=== PATIENT | female | born 1935 | race Two or more races ===

== ENCOUNTER 2016-06-29 12:54 | Inpatient (IN) | payer OTHER ==
[~2016-06-29] VITALS: Ht 152.4 cm; Wt 57.0 kg
[2016-06-29] MEDS ORDERED: CEFTRIAXONE 1 GM/50 ML (PMX) 50 ML IVPB STA (16:32)
[2016-06-29] MEDS ORDERED: AZITHROMYCIN 500MG/NS (PMX) 250 ML IV STA (16:32)
[2016-06-29] MEDS ORDERED: morphine 4 MG/ML VIAL IV STA (16:37)
[2016-06-29] MEDS ORDERED: ONDANSETRON 4 MG INJ IV STA (16:37)
[2016-06-29] MEDS ORDERED: IPRATROPIUM (NEB) 0.5 MG/2.5 ML AMP INH ONE (17:00)
[2016-06-29] MEDS ORDERED: METHYLPREDNISOLONE 125 MG INJ IV ONE (17:00)
[2016-06-29] MEDS ORDERED: ALBUTEROL 0.5% (NEB) 2.5 MG/0.5 ML AMP INH ONE (17:00)
--- NOTE | 2016-06-29 17:12 | RADRPT ---
PROCEDURE: XR right tibia / fibula. CLINICAL INDICATION: Pain TECHNIQUE: AP and lateral views are available for review. COMPARISON: None available FINDINGS: There is mild to moderate osteoarthrosis involving the medial tibial femoral compartment, lateral ti bial femoral compartment and patellofemoral compartment. This is associated with joint space narrowi ng, subchondral sclerosis and osteophytosis. There is otherwise normal mineralization, architecture and alignment. No fractures are identified. No osseous lesions are identified. The soft tissues are unremarkable. IMPRESSION: Mild to moderate osteoarthrosis involving the medial tibial femoral compartment, lateral tibial femo ral compartment and patellofemoral compartment. Otherwise unremarkable examination RPTAT: HGDB .Earl Edgar MD, MD Date Time Electronically viewed and signed by .Earl Edgar MD, on 06/29/2016 17:11 .B/
--- NOTE | 2016-06-29 17:18 | RADRPT ---
PROCEDURE: XR Chest. CLINICAL INDICATION: Shortness of breath TECHNIQUE: Chest AP portable COMPARISON: No comparison available. FINDINGS: The mediastinal structures are unremarkable. There is calcification of the thoracic aorta (consiste nt with atherosclerosis). There is mild cardiomegaly. The pulmonary vascularity is normal. There is mild interstitial disease. No consolidation is identified. The pleural spaces are unremarkable. There are senescent changes of the axial skeleton. IMPRESSION: Calcification of the thoracic aorta (consistent with atherosclerosis) Mild cardiomegaly Mild bilateral interstitial disease No active intrathoracic disease. RPTAT: HGDB .Earl Edgar MD, Date Time Electronically viewed and signed by .Earl Edgar MD, on 06/29/2016 17:18 .B/
[2016-06-29 17:24] LABS: BASOPHILS % 0.2 % (0.0-2.0); EOSINOPHILS # 0.1 10^3/ul (0.0-0.5); EOSINOPHILS % 0.7 % (0.0-7.0); HEMATOCRIT 37.2 % (37.0-47.0); HEMOGLOBIN 12.9 g/dl (12.0-16.0); LYMPHOCYTES % 6.8 % (15.0-51.0); MEAN CORPUSCULAR HEMOGLOBIN 32.4 pg (29.0-33.0); MEAN CORPUSCULAR HGB CONC 34.6 g/dl (32.0-37.0); MEAN CORPUSCULAR VOLUME 93.7 fl (82.0-101.0); MEAN PLATELET VOLUME 7.6 fl (7.4-10.4); MONOCYTE # 1.6 10^3/ul (0.3-0.9); MONOCYTES % 10.7 % (0.0-11.0); NEUTROPHIL # 11.9 10^3/ul (1.6-7.5); NEUTROPHILS % 81.6 % (39.0-77.0); PLATELET COUNT 270 10^3/UL (140-440); RED BLOOD COUNT 3.98 10^6/ul (4.20-5.40); RED CELL DISTRIBUTION WIDTH 13.3 % (11.5-14.5); UNCORRECTED WBC 14.6 10^3/ul (4.8-10.8); WHITE BLOOD COUNT 14.6 10^3/ul (4.8-10.8)
[2016-06-29 17:25] LABS: CONDITION 1
--- NOTE | 2016-06-29 17:27 | RADRPT ---
PROCEDURE: US DVT. CLINICAL INDICATION: Right lower extremity pain and swelling. TECHNIQUE: Multiple longitudinal and transverse images of the right lower extremity veins were obt ained with lepe scale and color Doppler imaging. 2D grayscale measurements with compression, color Doppler flow, and augmentation was performed. The calf veins were interrogated as well. COMPARISON: No prior studies are available for comparison. FINDINGS: The right common femoral, superficial femoral and popliteal veins are normally compressible througho ut. Color flow demonstrates normal filling of the vessel. Normal waveforms are visualized and ther e is normal response to augmentation. The calf veins are visualized and are equally unremarkable. IMPRESSION: 1. No evidence of a deep vein thrombosis involving the right lower extremity. RPTAT: JJ .Lolly Hernández MD, Date Time Electronically viewed and signed by .Lolly Hernández MD, MD on 06/29/2016 17:27 .N/
[2016-06-29 17:39] LABS: POTASSIUM 3.8 mmol/L (3.5-5.1)
[2016-06-29] MEDS ORDERED: VALS80TA2 PO (17:40)
[2016-06-29] MEDS ORDERED: CHOL100062 PO (17:40)
[2016-06-29] MEDS ORDERED: AMLO5TAB4 PO (17:40)
[2016-06-29 17:41] LABS: CREATININE 1.07 mg/dl (0.44-1.00)
[2016-06-29] MEDS ORDERED: FLOV110 INHALATION (17:41)
[2016-06-29] MEDS ORDERED: ALBU90AE INHALATION (17:41)
[2016-06-29 17:42] LABS: CALCIUM 9.8 mg/dl (8.4-10.2)
[2016-06-29] MEDS ORDERED: CHLO4TAB PO (17:47)
--- NOTE | 2016-06-29 20:16 | ERA ---
ER Documentation Chief Complaint Date/Time DATE: 06/29/16 TIME: 20:13 Chief Complaint SOB AND COUGH FOR A FEW DAYS WITH LO O2 SAT, R KNEE NON TRAUMA PAIN. HPI Patient is an 81-year-old female with diabetes and COPD who presents for a COPD exacerbation. The patient was seen by Dr. Leonardo for COPD exacerbation with a oxygen saturation of less than 90%. The patient has right knee pain and swelling as well. The patient is short of breath with cough and phlegm. She has had no treatment as of yet. ROS All systems reviewed and are negative except as per history of present illness. Medications Home Meds Reported Medications Chlorpheniramine Maleate* (Chlor-Trimeton*) 4 Mg Tablet, 4 MG PO DAILY, TAB NOT TO EXCEED 24 MG /24 HRS 06/29/16 Fluticasone Propionate* (Flovent* HFA 110) 12 Gm Inha, 1 PUFF INHALATION BID, # 1 INHALER 06/29/16 Albuterol Sulfate (Proair Respiclick) 90 Mcg Aer.pow.ba, 2 PUFFS INHALATION Q4, BOTTLE 06/29/16 Cholecalciferol* (Vitamin D3*) 1,000 Unit Tablet, 1000 UNIT PO DAILY, TAB 06/29/16 Valsartan* (Diovan*) 80 Mg Tablet, 80 MG PO DAILY, TAB 06/29/16 Amlodipine Besylate* (Norvasc*) 5 Mg Tablet, 5 MG PO QHS, TAB 06/29/16 Allergies Allergies: Coded Allergies: No Known Allergy (Unverified , 06/29/16) PMhx/Soc History of Surgery: Yes (KNEE, SHOULDER, CATARRACT, ABD) Hx Respiratory Disorders: Yes (COPD) Hx Cardiac Disorders: Yes (HTN) Hx Miscellaneous Medical Probl: Yes (ARTHRITIS) Hx Alcohol Use: No Hx Substance Use: No Hx Tobacco Use: Yes Smoking Status: Former smoker FmHx Family History: diabetes Physical Exam Vitals Vital Signs Date Time Temp Pulse Resp B/P Pulse Ox O2 Delivery O2 Flow Rate FiO2 06/29/16 19:36 98.8 91 18 100/51 91 Nasal Cannula 4.0 06/29/16 17:33 2.0 06/29/16 17:33 67 20 96 Nasal Cannula 2.0 06/29/16 17:17 Nasal Cannula 2 06/29/16 13:09 99.5 72 24 111/62 90 Physical Exam Const: Pursed lip breathing Head: Atraumatic Eyes: Normal Conjunctiva ENT: Normal External Ears, Nose and Mouth. Neck: Full range of motion..~ No meningismus. Resp: Expiratory wheezing with pursed lip breathing and tachypnea Cardio: Regular rate and rhythm, no murmurs Abd: Soft, non tender, non distended. Normal bowel sounds Skin: No petechiae or rashes Back: No midline or flank tenderness Ext: No cyanosis, or edema Neur: Awake and alert Psych: Normal Mood and Affect Result Diagram: 06/29/16 1640 06/29/16 1640 Results 24 hrs Laboratory Tests Test 06/29/16 16:40 06/29/16 19:00 Anion Gap 17 Basophils # 0.010^3/ul Basophils % 0.2% Blood Urea Nitrogen 17mg/dl Calcium Level 9.8mg/dl Carbon Dioxide Level 27mmol/L Chloride Level 100mmol/L Creatinine 1.07mg/dl Eosinophils # 0.110^3/ul Eosinophils % 0.7% Glucose Level 140mg/dl Hematocrit 37.2% Hemoglobin 12.9g/dl Lactic Acid Level 1.4mmol/L 0.9mmol/L Lymphocytes # 1.010^3/ul Lymphocytes % 6.8% Mean Corpuscular Hemoglobin 32.4pg Mean Corpuscular Hemoglobin Concent 34.6g/dl Mean Corpuscular Volume 93.7fl Mean Platelet Volume 7.6fl Monocytes # 1.610^3/ul Monocytes % 10.7% Neutrophils # 11.910^3/ul Neutrophils % 81.6% Nucleated Red Blood Cells # 0.010^3/ul Nucleated Red Blood Cells % 0.0/100WBC Platelet Count 93802^3/UL Potassium Level 3.8mmol/L Red Blood Count 3.9810^6/ul Red Cell Distribution Width 13.3% Sodium Level 140mmol/L White Blood Count 14.610^3/ul Current Medications Medications (Trade) Dose Ordered Sig/Ejrica Route PRN Reason Start Time Stop Time Status Last Admin Dose Admin Methylprednisolone Sodium Succinate (Solu-Medrol) 125 mg ONCE ONCE IV 06/29/16 17:00 06/29/16 17:01 DC 06/29/16 17:18 Albuterol (Proventil 0.5% (Neb)) 5 mg ONCE ONCE INH 06/29/16 17:00 06/29/16 17:01 DC 06/29/16 17:33 Ipratropium [place] 0.5 mg 0.5 mg ONCE ONCE INH 06/29/16 17:00 06/29/16 17:01 DC 06/29/16 17:33 Azithromycin 250 ml @ 250 mls/hr ONCE STAT IV 06/29/16 16:32 06/29/16 17:31 DC 06/29/16 19:18 Ceftriaxone Sodium (Rocephin) 50 ml @ 100 mls/hr ONCE STAT IVPB 06/29/16 16:32 06/29/16 17:01 DC 06/29/16 17:18 Morphine Sulfate (morphine) 4 mg ONCE STAT IV 06/29/16 16:37 06/29/16 16:38 DC 06/29/16 17:18 Ondansetron HCl (Zofran Inj) 4 mg ONCE STAT IV 06/29/16 16:37 06/29/16 16:38 DC 06/29/16 17:18 Ondansetron HCl (Zofran Inj) 4 mg BRIDGE ORDER PRN IV NAUSEA AND/OR VOMITING 06/29/16 20:30 06/30/16 20:29 Acetaminophen (Tylenol Tab) 650 mg ER BRIDGE PRN PO MILD PAIN/FEVER 06/29/16 20:30 06/30/16 20:29 Procedures/MDM EKG read by me: Rate/Rhythm: Regular rate and rhythm at a normal rate Intervals: Normal Impression: No evidence of ischemia or arrhythmia Chest x-ray shows bilateral interstitial disease per radiology. Right lower extrema ultrasound negative per radiology. X-ray negative for fracture or dislocation. Patient is an 81-year-old female with COPD who presents with an acute COPD exacerbation. The patient was given albuterol, Atrovent, Solu-Medrol, and ceftriaxone as well as Zithromax. The patient will be admitted to the care of Dr. Martinez as she has regal insurance. The patient will be admitted to a medical surgical bed. At this point I doubt pneumothorax or pulmonary embolism. Ultrasound and x-ray of the right lower extremity was done and is negative for DVT or fracture. Critical Care: Time: 35 minutes excluding all billable procedures. Treatments/Evaluations: Close monitoring and treatment of unstable vital signs, cardiorespiratory, and neurologic status, while maintaining tight balance of fluid, respiratory, and cardiac interventions. Departure Diagnosis: Primary Impression: COPD exacerbation Additional Impressions: Shortness of breath Hypoxia Condition: SONNY Schroeder MD Jun 29, 2016 20:16
[2016-06-29] MEDS ORDERED: ONDANSETRON 4 MG INJ IV PRN ×2 (20:30→23:00)
[2016-06-29] MEDS ORDERED: ACETAMINOPHEN 325 MG TAB PO PRN (20:30)
[2016-06-29 20:46] LABS: AADO2 Arterial 116.9 mmHg (7.0-24.0); Arterial Base Excess -3.2 mmol/L (-3.0-3); Arterial COHb 0 % (0.0-3.0); Arterial Fraction of Oxyhgb 92.4 % (93.0-99.0); Arterial HCO3 22.4 mmol/L (22.0-26.0); Arterial MetHb 0.2 % (0.0-1.5); Arterial Total Hemglobin 12.9 g/dl (12.0-18.0); MODE NASAL CANNULA
[2016-06-29 21:13] VITALS: TEMP 98.7
[2016-06-29 21:40] VITALS: BP 118/56; RESP 16
[2016-06-29] MEDS ORDERED: ALBUTEROL 0.083% (NEB) 2.5 MG/3 ML AMP HHN PRN (23:00)
[2016-06-29] MEDS ORDERED: morphine 2 MG INJ IV PRN (23:00)
[2016-06-29] MEDS ORDERED: FUROSEMIDE 40 MG INJ IV ONE (23:00)
--- NOTE | 2016-06-29 23:03 | QN ---
Documentation Comment H&P dict a/p 1. pulm: possible copd, patient does have around a 25 pack yesr hx of smoking, however consider also pulm fibrosis based on xray and exam, check ct chest 2. cards: ?chf as source of sob and xray findings, check echo, one dose of lasix 3. R knee effusion, suspecet related to OA, no overlying erythema, but patient will not range the joint, ortho eval for possible arthrocentesis, possible steroid injection, xrays show no fractures but tricompartmental OA 4. proph: BRIANA Shi MD Jun 29, 2016 23:03
[2016-06-29 23:33] VITALS: BP 90/54
--- NOTE | 2016-06-29 23:44 | HP ---
DATE OF ADMISSION: 06/29/2016 CHIEF COMPLAINT: Shortness of breath. HISTORY OF PRESENT ILLNESS: Ms. Doyle presents to the emergency room at [facility] with s hortness of breath. This has been particularly bad over the last 1-2 days, but is associated with s ome coughing, which has been going on approximately 1 week; however, patient denies any fevers or ch ills. Does state there have been some sneezing and some runny nose. Denies sick contacts. She has never been hospitalized with shortness of breath before; however, she does acknowledge that there i s an approximately [id number]-[id number] history of smoking, which she quit approximately 1 year ago. PAST MEDICAL HISTORY: Significant for hypertension and respiratory difficulty, which led to her usi ng inhalers. MEDICATIONS: On outpatient include: 1. Vitamin D 1000 units daily. 2. Flovent 1 puff b.i.d. 3. Diovan 80 mg daily. 4. Norvasc 5 mg daily. 5. Albuterol. 6. Chlor-Trimeton. ALLERGIES: NO KNOWN DRUG ALLERGIES. SOCIAL HISTORY: Patient lives at home in [place] with her son. She occasionally uses a cane for a mbulation. She is usually independent of activities of daily living. Denies current tobacco, alcoh ol, or illicit drug use. FAMILY HISTORY: Noncontributory. REVIEW OF SYSTEMS: Five systems are reviewed and found to be revealing only for 2-pillow orthopnea. PHYSICAL EXAMINATION: VITAL SIGNS: Blood pressure is 118/56, pulse rate 79, respirations 16, temperature is 98.4. GENERAL: Pleasant elderly woman in no acute distress, alert and oriented x3. Some pursed lip breat mila. HEENT: Normocephalic, atraumatic without evident scleral icterus, perioral cyanosis. Mucous membra oxana are moist. NECK: Soft and supple without masses. No evidence of jugular venous distention or carotid bruits. HEART: Regular rate and rhythm, S1-S2, no added sounds. ABDOMEN: Soft, nontender, nondistended without palpable hepatosplenomegaly. EXTREMITIES: Without clubbing, cyanosis, or edema. CHEST: Shows some occasional crackles in the lower lung zones. I do not appreciate any wheezes. U pper zones are generally clear and rhythm. ABDOMEN: Soft, nontender, nondistended without palpable hepatosplenomegaly. EXTREMITIES: Without clubbing, cyanosis, or edema. There is a right knee effusion appreciated, and patient is very reluctant to allow either active or passive movement at this joint. No other joint involvement is appreciated. SKIN: Without rashes. NEUROLOGIC: Grossly intact. LABORATORY STUDIES: Reveal hemoglobin of 12.9 g/dL, white count of 14,600, platelets of 270,000. S odium 140, potassium 3.8, chloride 100, bicarbonate 27, BUN 17, creatinine 1.07, glucose 148. BNP i s 1130. Arterial blood gas reveals a pH of 7.343, PCO2 of 42.2, PO2 of 69.1. Chest x-ray shows dif fuse lower lung interstitial infiltrate, possibly consistent with congestive heart failure. X-ray o f the right main does not reveal any fractures, but does show tricompartmental osteoarthritis. ASSESSMENT AND PLAN: 1. Pulmonary: Patient with shortness of breath, reported to have wheezing by the emergency room ph ysician, though I do not appreciate this. At this time, I appreciate crackles. I am not certain th is could be related to chronic obstructive pulmonary disease, and certainly she does have modest smo armando history. Will treat with prednisone, as well as nebulizers; however, consider also pulmonary f ibrosis and/or pulmonary hypertension as a potential etiology for this, and we will obtain high reso lution CT scan of the chest, as well as echocardiogram for further evaluation. 2. Cardiac: Patient with shortness of breath and chest x-ray, which is suggestive, if not definiti ve, for congestive heart failure. Obtain echocardiogram. Will give 1 dose of Lasix at this time. 3. Orthopedic: Patient with right knee pain, limited range of motion, and effusion. Will obtain o rthopedic evaluation for a suspected joint tap to evaluate for potential crystals or sepsis, though my leading hypothesis is this is simply related to osteoarthritis at this time. Possibly, patient will benefit from intraarticular cortisone steroid injection. Will defer this to orthopedic consult ant. 4. Prophylaxis: With Lovenox. Dictated By: BRIANA CHOE MD RER/NTS Conf#: [id number] DID#: [id number]
[2016-06-30] MEDS: ALBUTEROL/IPRATROPIUM (NEB) 3 ML AMP HHN SCH ×4 (02:00→20:03)
[2016-06-30 07:24] VITALS: BP 94/51; RESP 18
[2016-06-30] MEDS: CHOLECALCIFEROL 1,000 UNIT TAB PO SCH (08:52)
[2016-06-30] MEDS: predniSONE 20 MG TAB PO SCH (08:52)
[2016-06-30] MEDS: ENOXAPARIN 40 MG/0.4 ML SYG SC SCH (08:52)
[2016-06-30] MEDS ORDERED: VALSARTAN 80 MG TAB PO SCH (09:00)
--- NOTE | 2016-06-30 14:52 | PN ---
Date/Time of Note Date/Time of Note DATE: 06/30/16 TIME: 14:40 Assessment/Plan VTE Prophylaxis VTE Prophylaxis Intervention: LMWH Lines/Catheters IV [facility]from [facility] Saline Lock Urinary Cath still in place: No Assessment/Plan Assessment/Plan 81 yo female with: 1. Hypoxemia, per family patient has been somewhat dyspneic with exertion, her ambulation is limited by her right knee pain. Based on her outpatient meds she may have been diagnosed with chronic lung disease as she is on Flovent and Albuterol MDI prn at home, also unclear if she uses them... CT High res results pending, for now on Prednisone, nebs and starting Levaquin. Will add Advair at least 2D echo results pending 2. ?Congestive heart failure may some diastolic dysfunction, EF 65% , no peripheral edema, BNP a little elevated for her age group Follow up CT results Lasix if needed and BP tolerates 3. Right knee pain, limited range of motion, and small to moderate effusion on exam: XR with mild to moderate OA Joint effusion likely related to OA. I have discussed it with Dr Juarez, for now patient already on Prednisone for ? chronic lung disease with acute exacerbation Dr Juarez will be available Sunday if patient is still in house and /or additional concerns otherwise patient can follow up with him as outpatient. 4. Hypertension: with hypotension since admit, Holding Diovan and Norvasc for now Prophylaxis: DVT ppx with Lovenox and GI ppx with Protonix. Disposition: Awaiting CT chest reading and ortho eval Subjective 24 Hr Interval Summary Free Text/Dictation Patient still remains hypoxic and per family her cough is productive of green sputum. Requiring up to 6L NC, CXR with no infiltrates CT chest high res done and result pending Doppler LE negative Exam/Review of Systems Vital Signs Vitals Vital Signs Date Time Temp Pulse Resp B/P Pulse Ox O2 Delivery O2 Flow Rate FiO2 06/30/16 12:53 62 18 89 Nasal Cannula 3.0 06/30/16 07:24 97.9 94/51 Intake and Output 06/29/16 06/29/16 06/30/16 15:00 23:00 07:00 Intake Total 360 ml Balance 360 ml Exam Constitutional: alert, oriented, well developed Respiratory: diminished breath sounds (bases mildly diminished ), normal air movement, other (no wheezes ) Cardiovascular: nl pulses, regular rate and rhythm Gastrointestinal: non-tender, soft Musculoskeletal: range of motion (decreased right knee ) Extremities: normal pulses, other (no edema, clubbing od cyanosis ) Neurological: DIE MAKER BENCH STAMPING II-XII intact, nl mental status, nl speech, other (limited exam with right knee pain and decreased ROM ) Results Result Diagram: 06/29/16 1640 06/29/16 1640 Results 24 hrs Laboratory Tests Test 06/29/16 16:40 06/29/16 19:00 06/29/16 19:50 06/29/16 21:15 Anion Gap 17 H Basophils # 0.0 Basophils % 0.2 Blood Urea Nitrogen 17 Calcium Level 9.8 Carbon Dioxide Level 27 Chloride Level 100 Creatinine 1.07 H Eosinophils # 0.1 Eosinophils % 0.7 Glucose Level 140 Hematocrit 37.2 Hemoglobin 12.9 Lactic Acid Level 1.4 0.9 1.0 Lymphocytes # 1.0 Lymphocytes % 6.8 L Mean Corpuscular Hemoglobin 32.4 Mean Corpuscular Hemoglobin Concent 34.6 Mean Corpuscular Volume 93.7 Mean Platelet Volume 7.6 Monocytes # 1.6 H Monocytes % 10.7 Neutrophils # 11.9 H Neutrophils % 81.6 H Nucleated Red Blood Cells # 0.0 Nucleated Red Blood Cells % 0.0 Platelet Count 270 Potassium Level 3.8 Red Blood Count 3.98 L Red Cell Distribution Width 13.3 Sodium Level 140 White Blood Count 14.6 H B-Type Natriuretic Peptide 1130 H Arterial Blood HCO3 22.4 Arterial Blood Base Excess -3.2 L Arterial Blood Oxygen Saturation 92.6 L Dg Test N/A Arterial Blood Gas Puncture Site Right Brachial Arterial Blood Carboxyhemoglobin 0 Arterial Blood Date Drawn 06/29/2016 8:35:06 PM Arterial Blood Methemoglobin 0.2 Arterial Blood pCO2 (Temp correct) 42.2 Arterial Blood pH (Temp corrected) 7.343 L Arterial Blood pO2 (Temp corrected) 69.1 L Blood Gas A-a O2 Differential 116.9 H Blood Gas Actual Respiration Rate 26 Blood Gas Critical Value Read Back Renata AWAN Blood Gas Modality NASAL CANNULA Blood Gas Notified Time 06/29/2016 8:46:46 PM Blood Gas Notified Whom BL Blood Gas Specimen Source Blood arterial Blood Gas Temperature 37.0 FiO2 33.0 Oxyhemoglobin Percent 92.4 L Total Hemoglobin 12.9 Medications Medications Current Medications Prednisone (Prednisone) 60 mg DAILY PO Last administered on 06/30/16 08:52; Admin Dose 60 MG; Start 06/30/16 at 09:00 Enoxaparin Sodium (Lovenox) 40 mg DAILY SC Last administered on 06/30/16 08:52 ; Admin Dose 40 MG; Start 06/30/16 at 09:00 Cholecalciferol (Vitamin D) 1,000 unit DAILY PO Last administered on 06/30/16 08:52; Admin Dose 1,000 UNIT; Start 06/30/16 at 09:00 Valsartan (Diovan) 80 mg DAILY PO ; Start 06/30/16 at 09:00 Acetaminophen (Tylenol Tab) 650 mg Q4H PRN PO PAIN AND OR ELEVATED TEMP; Start 06/29/16 at 23:00 Ondansetron HCl (Zofran Inj) 4 mg Q4H PRN IV NAUSEA AND/OR VOMITING; Start at 23:00 Morphine Sulfate (morphine) 2 mg Q2H PRN IV PAIN; Start 06/29/16 at 23:00 Procedures Procedures Echocardiogram Report Patient Name: OLMAN CLARKE Gender: Female Date: 1935 Study Date: 30-Jun-2016 [employer] Reader: Bear Castillo RDCS Location: [id number] Ref. Physician: BRIANA CHOE Quality: Technically Difficult Study Procedures: Transthoracic echocardiogram with complete 2D, M-Mode, and doppler examination. Indications: Congestive Heart Failure. Pulmonary Hypertension. 2D/M Mode Doppler Measurement Value Normal Ranges Measurement Value Normal Ranges LVIDd 2D 4.9 3.5 - 5.6 cm AV Mean Armando 1.3 m/sec LVIDs 2D 2.5 2.1 - 4.1 cm AV Mean PG 8.0 mmHg LVPWd 2D 1.1 0.6 - 1.1 cm AV Peak Armando 2.1 m/sec IVSd 2D 1.1 0.6 - 1.1 cm AV Peak PG 17.5 mmHg AoR Diam 2D 3.1 2.0 - 3.7 cm AV VTI 42.8 cm EDV 2D 112.3 cm3 LVOT Mean Armando 0.9 m/sec ESV 2D 15.1 cm3 LVOT Mean PG 4.0 mmHg LA Dimen 2D 3.6 2.3 - 4.0 cm LVOT Peak Armando 1.6 m/sec LVOT Peak PG 10.0 mmHg LVOT VTI 30.8 cm MV E Peak Armando 0.7 m/sec MV A Peak Armando 1.0 m/sec MV E/A 0.7 MV Decel Time 173 msec MV Decel [place] 4 MV E/A 0.7 TR Peak Armando 3.3 m/sec TR Peak PG 43.0 mmHg RVSP 58.0 mmHg Findings Left Ventricle: Normal left ventricular systolic function. Normal left ventricular cavity size. Mild concentric left ventricular hypertrophy. Ejection fraction is visually estimated at 65 %. Tissue Doppler/Mitral Doppler indices are consistent with impaired relaxation (Stage I diastolic dysfunction). Right Ventricle: Normal right ventricular systolic function. Mild enlargement of right ventricle. Mild right ventricular hypokinesis. Left Atrium: The left atrium is normal in size. Right Atrium: There is mild enlargement of right atrium. Mitral Valve: Normal appearance of the mitral valve. Mild mitral annular calcification. Trace mitral regurgitation. Aortic Valve: Aortic valve Max velocity 2.09 m/sec. Max PG 17.50 mmHg. Mean PG 8.00 mmHg. Aortic sclerosis without stenosis. Aortic cusps appear mildly calcified. Trace aortic valve regurgitation. Tricuspid Valve: Normal appearance of the tricuspid valve. Estimated peak PA systolic pressure 58 mmHg. There is mild tricuspid regurgitation. Pericardium: Normal pericardium with no significant pericardial effusion. Aorta: Normal aortic root. IVC: Dilated IVC without respiratory collapse consistent with elevated right atrial pressure. Conclusions 1. Normal left ventricular systolic function. Normal left ventricular cavity size. Mild concentric left ventricular hypertrophy. Ejection fraction is visually estimated at 65 %. Tissue Doppler/Mitral Doppler indices are consistent with impaired relaxation (Stage I diastolic dysfunction). 2. The left atrium is normal in size. 3. Normal appearance of the mitral valve. Mild mitral annular calcification. Trace mitral regurgitation. 4. Aortic valve Max velocity 2.09 m/sec. Max PG 17.50 mmHg. Mean PG 8.00 mmHg. Aortic sclerosis without stenosis. Aortic cusps appear mildly calcified. Trace aortic valve regurgitation. 5. Normal appearance of the tricuspid valve. Estimated peak PA systolic pressure 58 mmHg. There is mild tricuspid regurgitation. 6. Normal pericardium with no significant pericardial effusion. Electronically Signed By: Sebastian Zimmerman 30-Jun-2016 15:32:53 -0800 BRYAN PATEL Jun 30, 2016 14:51
[2016-06-30 14:55] VITALS: BP 96/52; PULSE 76; RESP 16
[2016-06-30] MEDS: LEVOFLOXACIN 750 MG TABLET PO SCH (15:32)
--- NOTE | 2016-06-30 15:34 | RADRPT ---
Echocardiogram Report Patient Name: OLMAN CLARKE Gender: Female Date: 1935 Study Date: 30-Jun-2016 Chef'S Assistant: Bear Castillo [facility] Location: 2239 Ref. Physician: BRIANA CHOE Quality: Technically Difficult Study Procedures: Transthoracic echocardiogram with complete 2D, M-Mode, and doppler examination. Indications: Congestive Heart Failure. Pulmonary Hypertension. 2D/M Mode Doppler Measurement Value Normal Ranges Measurement Value Normal Ranges LVIDd 2D 4.9 3.5 - 5.6 cm AV Mean Armando 1.3 m/sec LVIDs 2D 2.5 2.1 - 4.1 cm AV Mean PG 8.0 mmHg LVPWd 2D 1.1 0.6 - 1.1 cm AV Peak Armando 2.1 m/sec IVSd 2D 1.1 0.6 - 1.1 cm AV Peak PG 17.5 mmHg AoR Diam 2D 3.1 2.0 - 3.7 cm AV VTI 42.8 cm EDV 2D 112.3 cm3 LVOT Mean Armando 0.9 m/sec ESV 2D 15.1 cm3 LVOT Mean PG 4.0 mmHg LA Dimen 2D 3.6 2.3 - 4.0 cm LVOT Peak Armando 1.6 m/sec LVOT Peak PG 10.0 mmHg LVOT VTI 30.8 cm MV E Peak Armando 0.7 m/sec MV A Peak Armando 1.0 m/sec MV E/A 0.7 MV Decel Time 173 msec MV Decel Brown 4 MV E/A 0.7 TR Peak Armando 3.3 m/sec TR Peak PG 43.0 mmHg RVSP 58.0 mmHg Findings Left Ventricle: Normal left ventricular systolic function. Normal left ventricular cavity size. Mild concentric left ventricular hypertrophy. Ejection fraction is visually estimated at 65 %. Tissue Doppler/Mitral Doppler indices are consistent with impaired relaxation (Stage I diastolic dysfunction). Right Ventricle: Normal right ventricular systolic function. Mild enlargement of right ventricle. Mild right ventricular hypokinesis. Left Atrium: The left atrium is normal in size. Right Atrium: There is mild enlargement of right atrium. Mitral Valve: Normal appearance of the mitral valve. Mild mitral annular calcification. Trace mitral regurgitation. Aortic Valve: Aortic valve Max velocity 2.09 m/sec. Max PG 17.50 mmHg. Mean PG 8.00 mmHg. Aortic sclerosis without stenosis. Aortic cusps appear mildly calcified. Trace aortic valve regurgitation. Tricuspid Valve: Normal appearance of the tricuspid valve. Estimated peak PA systolic pressure 58 mmHg. There is mild tricuspid regurgitation. Pericardium: Normal pericardium with no significant pericardial effusion. Aorta: Normal aortic root. IVC: Dilated IVC without respiratory collapse consistent with elevated right atrial pressure. Conclusions 1.Normal left ventricular systolic function. Normal left ventricular cavity size. Mild concentric left ventricular hypertrophy. Ejection fraction is visually estimated at 65 %. Tissue Doppler/Mitral Doppler indices are consistent with impaired relaxation (Stage I diastolic dysfunction). 2.The left atrium is normal in size. 3.Normal appearance of the mitral valve. Mild mitral annular calcification. Trace mitral regurgitation. 4.Aortic valve Max velocity 2.09 m/sec. Max PG 17.50 mmHg. Mean PG 8.00 mmHg. Aortic sclerosis without stenosis. Aortic cusps appear mildly calcified. Trace aortic valve regurgitation. 5.Normal appearance of the tricuspid valve. Estimated peak PA systolic pressure 58 mmHg. There is mild tricuspid regurgitation. 6.Normal pericardium with no significant pericardial effusion. Electronically Signed By: Sebastian Zimmerman 30-Jun-2016 15:32:53 -0800 Patient Name: OLMAN CLARKE Study Date: 30-Jun-2016 [id number]
[2016-06-30 19:42] VITALS: BP 106/54; RESP 20
[2016-06-30 20:00] VITALS: BP 106/54; PULSE 72
--- NOTE | 2016-06-30 20:01 | RADRPT ---
PROCEDURE: CT Chest without contrast (high resolution). CLINICAL INDICATION: Productive cough. Evaluate for pulmonary fibrosis. TECHNIQUE: High-resolution CT scan of the chest was performed without the administration of intrav enous contrast. Coronal and sagittal reformatted images were obtained from the axial source images. Patient was examined during both deep inspiration and full expiration. Images were reviewed on a h igh resolution PACS workstation. CTDIvol (mGy): 37.89; Total Exam DLP (mGy-cm): 326.81. COMPARISON: Chest x-ray 06/29/2016. FINDINGS: Limited imaging of the lower neck is unremarkable. The heart is enlarged. There is no pericardial effusion. There is no mediastinal, hilar or axillar y lymphadenopathy. The thoracic aorta is normal in caliber with atherosclerotic calcification. 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 The main pulmonary artery is prominent in size. Mild coronary artery calcification is present. Mild emphysematous changes are seen within the upper lungs. Extensive bilateral subpleural intersti tial thickening is present with scattered few clusters of subpleural cystic change / honeycombing. There is an increased AP diameter of the chest suggesting hyperinflation. Trace left pleural fluid is present. Mild ground-glass opacification of the background pulmonary parenchyma is observed martin singh this is accentuated by motion artifact. Limited imaging of the upper abdomen demonstrates multiple small simple cyst of the left kidney. Degenerative changes of the thoracic spine are present. Chest wall soft tissues are unremarkable. IMPRESSION: Mild hyperinflation with mild emphysematous changes of the lung apices. In addition, there is exten sive diffuse subpleural interstitial thickening with scattered few clusters of subpleural cystic rafiq nge / honeycombing indicating the presence of interstitial fibrosis. No evidence of mass or lymphadenopathy of the chest. Cardiomegaly and atherosclerosis with trace left pleural effusion. RPTAT: HLST .Emily Dunn MD, Date Time Electronically viewed and signed by .Emily Dunn MD, on 06/30/2016 20:00 .T/
[2016-06-30] MEDS: SALMETEROL/FLUTICASONE 250/50 INHA INH SCH (23:08)
[2016-07-01] MEDS: ALBUTEROL/IPRATROPIUM (NEB) 3 ML AMP HHN SCH ×4 (01:14→20:54)
[2016-07-01] MEDS: PANTOPRAZOLE (EC) 40 MG TAB PO SCH (05:34)
[2016-07-01 05:47] LABS: BASOPHILS % 0.1 % (0.0-2.0); CONDITION 1; HEMATOCRIT 33.6 % (37.0-47.0); HEMOGLOBIN 11.8 g/dl (12.0-16.0); LYMPHOCYTES # 0.5 10^3/ul (0.8-2.9); LYMPHOCYTES % 3.2 % (15.0-51.0); MEAN CORPUSCULAR HEMOGLOBIN 32.5 pg (29.0-33.0); MEAN CORPUSCULAR HGB CONC 34.9 g/dl (32.0-37.0); MEAN CORPUSCULAR VOLUME 93.1 fl (82.0-101.0); MEAN PLATELET VOLUME 7.9 fl (7.4-10.4); MONOCYTE # 1.1 10^3/ul (0.3-0.9); MONOCYTES % 6.9 % (0.0-11.0); NEUTROPHIL # 14.9 10^3/ul (1.6-7.5); NEUTROPHILS % 89.8 % (39.0-77.0); PLATELET COUNT 320 10^3/UL (140-440); RED BLOOD COUNT 3.62 10^6/ul (4.20-5.40); RED CELL DISTRIBUTION WIDTH 13.2 % (11.5-14.5); UNCORRECTED WBC 16.5 10^3/ul (4.8-10.8); WHITE BLOOD COUNT 16.5 10^3/ul (4.8-10.8)
[2016-07-01 05:55] LABS: MAGNESIUM 1.9 mg/dl (1.7-2.5); PHOSPHORUS 4.3 mg/dl (2.5-4.9)
[2016-07-01 06:29] LABS: POTASSIUM 4.2 mmol/L (3.5-5.1)
[2016-07-01 06:32] LABS: CREATININE 1.63 mg/dl (0.44-1.00)
[2016-07-01 06:33] LABS: CALCIUM 9.2 mg/dl (8.4-10.2)
[2016-07-01 07:38] VITALS: BP 100/63; RESP 22
[2016-07-01] MEDS: CHOLECALCIFEROL 1,000 UNIT TAB PO SCH (08:31)
[2016-07-01] MEDS: SALMETEROL/FLUTICASONE 250/50 INHA INH SCH ×2 (08:32→20:34)
[2016-07-01] MEDS: predniSONE 20 MG TAB PO SCH (08:32)
[2016-07-01] MEDS: ENOXAPARIN 40 MG/0.4 ML SYG SC SCH (08:33)
[2016-07-01 09:06] VITALS: RESP 20
[2016-07-01] MEDS: ACETAMINOPHEN 325 MG TAB PO PRN (13:09)
[2016-07-01 13:50] VITALS: BP 103/53; PULSE 80; RESP 20
--- NOTE | 2016-07-01 13:50 | PN ---
Date/Time of Note Date/Time of Note DATE: 07/01/16 TIME: 13:46 Assessment/Plan VTE Prophylaxis VTE Prophylaxis Intervention: LMWH Lines/Catheters IV Catheter Type (from Nrs): Saline Lock Central line still needed: No Urinary Cath still in place: No Assessment/Plan Assessment/Plan 81 yo female with: 1. COPD/ILD: improving; still hypoxic, but will maintain oxygen saturation at 92%. Per family patient has been somewhat dyspneic with exertion, her ambulation is limited by her right knee pain. Based on her outpatient meds she may have been diagnosed with chronic lung disease as she is on Flovent and Albuterol MDI prn at home, also unclear if she uses them. CT High res results reveal ILD in the bases. 2. Congestive heart failure may some diastolic dysfunction, EF 65%: minimal effusion on CT. No need for diuretics for now. 3. Right knee pain, limited range of motion, and small to moderate effusion on exam: improving, probably with steroids. 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 I have discussed it with Dr Juarez, for now patient already on Prednisone for ? chronic lung disease with acute exacerbation Dr Juarez will be available Sunday afternoon if patient is still in house and /or additional concerns otherwise patient can follow up with him as outpatient. 4. Hypertension: with hypotension since admit, Holding Diovan and Norvasc for now Prophylaxis: DVT ppx with Lovenox and GI ppx with Protonix. Disposition: Home when she is stable. Subjective 24 Hr Interval Summary Free Text/Dictation Still coughing, but improved slightly. C/o of headache. Not eating too much. Exam/Review of Systems Vital Signs Vitals Vital Signs Date Time Temp Pulse Resp B/P Pulse Ox O2 Delivery O2 Flow Rate FiO2 07/01/16 09:06 20 93 5.0 07/01/16 08:10 72 Nasal Cannula 07/01/16 07:38 98.1 100/63 Intake and Output 06/30/16 06/30/16 07/01/16 15:00 23:00 07:00 Intake Total 600 ml 200 ml Balance 600 ml 200 ml Exam Constitutional: alert, oriented Psych: no complaints, other (headache, throbbing) Head: normocephalic Eyes: nl conjunctiva ENMT: nl external ears & nose Neck: supple Respiratory: diminished breath sounds Cardiovascular: regular rate and rhythm Gastrointestinal: soft Extremities: other (right kneww swelling) Results Result Diagram: 07/01/16 0445 07/01/16 0435 Results 24 hrs Laboratory Tests Test 07/01/16 04:35 07/01/16 04:45 Anion Gap 16 Blood Urea Nitrogen 41 #H Calcium Level 9.2 Carbon Dioxide Level 23 Chloride Level 102 Creatinine 1.63 H Glucose Level 139 Magnesium Level 1.9 Phosphorus Level 4.3 Potassium Level 4.2 Sodium Level 137 Basophils # 0.0 Basophils % 0.1 Eosinophils # 0.0 Eosinophils % 0.0 Hematocrit 33.6 L Hemoglobin 11.8 L Lymphocytes # 0.5 L Lymphocytes % 3.2 L Mean Corpuscular Hemoglobin 32.5 Mean Corpuscular Hemoglobin Concent 34.9 Mean Corpuscular Volume 93.1 Mean Platelet Volume 7.9 Monocytes # 1.1 H Monocytes % 6.9 Neutrophils # 14.9 H Neutrophils % 89.8 H Nucleated Red Blood Cells # 0.0 Nucleated Red Blood Cells % 0.0 Platelet Count 320 Red Blood Count 3.62 L Red Cell Distribution Width 13.2 White Blood Count 16.5 H Medications Medications Current Medications Prednisone (Prednisone) 60 mg DAILY PO Last administered on 07/01/16 08:32; Admin Dose 60 MG; Start 06/30/16 at 09:00 Enoxaparin Sodium (Lovenox) 40 mg DAILY SC Last administered on 07/01/16 08:33 ; Admin Dose 40 MG; Start 06/30/16 at 09:00 Cholecalciferol (Vitamin D) 1,000 unit DAILY PO Last administered on 07/01/16 08:31; Admin Dose 1,000 UNIT; Start 06/30/16 at 09:00 Acetaminophen (Tylenol Tab) 650 mg Q4H PRN PO PAIN AND OR ELEVATED TEMP Last administered on 07/01/16 13:09; Admin Dose 650 MG; Start 06/29/16 at 23:00 Ondansetron HCl (Zofran Inj) 4 mg Q4H PRN IV NAUSEA AND/OR VOMITING; Start at 23:00 Morphine Sulfate (morphine) 2 mg Q2H PRN IV PAIN; Start 06/29/16 at 23:00 Levofloxacin (Levaquin) 750 mg Q48H PO Last administered on 06/30/16 15:32; Admin Dose 750 MG; Start 06/30/16 at 15:30; Stop 07/05/16 at 15:29 Salmeterol Xinafoate/ Fluticasone (Advair 250/50 Diskus) 1 inh BID INH Last administered on 07/01/16 08:32; Admin Dose 1 INH; Start 06/30/16 at 21:00 Pantoprazole (Protonix Tab) 40 mg DAILY@06 PO Last administered on 07/01/16 05 :34; Admin Dose 40 MG; Start 07/01/16 at 06:00 DREAD WATKINS MD Jul 01, 2016 13:50
[2016-07-01] MEDS: ACETYLCYSTEINE 20% 4 ML VIAL NEB SCH ×2 (14:01→20:55)
[2016-07-01] MEDS: SOD CHLORIDE 0.9% 1,000 ML IV SCH (14:09)
[2016-07-01 20:15] VITALS: BP 145/77; RESP 20
[2016-07-01 22:00] VITALS: BP 102/71; PULSE 80; RESP 18
[2016-07-02] MEDS: ACETYLCYSTEINE 20% 4 ML VIAL NEB SCH ×4 (01:42→20:22)
[2016-07-02] MEDS: ALBUTEROL/IPRATROPIUM (NEB) 3 ML AMP HHN SCH ×4 (01:42→20:22)
[2016-07-02] MEDS: PANTOPRAZOLE (EC) 40 MG TAB PO SCH (05:22)
[2016-07-02 05:31] LABS: POTASSIUM 4.4 mmol/L (3.5-5.1)
[2016-07-02 05:33] LABS: CREATININE 1.37 mg/dl (0.44-1.00)
[2016-07-02 05:34] LABS: CALCIUM 9.4 mg/dl (8.4-10.2); CHOL/HDL RATIO 3.9 RATIO
[2016-07-02 05:36] LABS: BASOPHILS % 0.2 % (0.0-2.0); HEMATOCRIT 34.2 % (37.0-47.0); LYMPHOCYTES # 0.7 10^3/ul (0.8-2.9); LYMPHOCYTES % 5.4 % (15.0-51.0); MEAN CORPUSCULAR HEMOGLOBIN 32.5 pg (29.0-33.0); MEAN CORPUSCULAR HGB CONC 35.2 g/dl (32.0-37.0); MEAN CORPUSCULAR VOLUME 92.6 fl (82.0-101.0); MEAN PLATELET VOLUME 7.7 fl (7.4-10.4); MONOCYTE # 1.1 10^3/ul (0.3-0.9); MONOCYTES % 8.4 % (0.0-11.0); NEUTROPHIL # 10.9 10^3/ul (1.6-7.5); PLATELET COUNT 333 10^3/UL (140-440); RED CELL DISTRIBUTION WIDTH 13.3 % (11.5-14.5); UNCORRECTED WBC 12.7 10^3/ul (4.8-10.8); WHITE BLOOD COUNT 12.7 10^3/ul (4.8-10.8)
[2016-07-02 06:35] LABS: CONDITION 1
[2016-07-02] MEDS: SOD CHLORIDE 0.9% 1,000 ML IV SCH ×2 (06:50→23:19)
[2016-07-02 08:04] VITALS: BP 113/54; RESP 20
[2016-07-02] MEDS: predniSONE 20 MG TAB PO SCH (08:33)
[2016-07-02] MEDS: CHOLECALCIFEROL 1,000 UNIT TAB PO SCH (08:33)
[2016-07-02] MEDS: SALMETEROL/FLUTICASONE 250/50 INHA INH SCH ×2 (08:33→20:27)
[2016-07-02] MEDS: ENOXAPARIN 40 MG/0.4 ML SYG SC SCH (08:35)
[2016-07-02] MEDS: LEVOFLOXACIN 750 MG TABLET PO SCH (15:59)
--- NOTE | 2016-07-02 16:43 | PN ---
Date/Time of Note Date/Time of Note DATE: 07/02/16 TIME: 16:41 Assessment/Plan VTE Prophylaxis VTE Prophylaxis Intervention: LMWH Lines/Catheters IV Catheter Type (from Nrs): Saline Lock Central line still needed: No Urinary Cath still in place: No Assessment/Plan Assessment/Plan 81 yo female with: 1. COPD/ILD: improving; still hypoxic, but oxygentation improved. She is currently on 3 L to maintain oxygen saturation at 92%. Per family patient has been somewhat dyspneic with exertion, her ambulation is limited by her right knee pain. However, her knee pain is improving and there is less swelling. Based on her outpatient meds she may have been diagnosed with chronic lung disease as she is on Flovent and Albuterol MDI prn at home, also unclear if she uses them. CT High res results reveal ILD in the bases. 2. Congestive heart failure may some diastolic dysfunction, EF 65%: minimal effusion on CT. No need for diuretics for now. 3. Right knee pain, limited range of motion, and small to moderate effusion on exam: improving, probably with steroids. 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 I have discussed it with Dr Juarez, for now patient already on Prednisone for ? chronic lung disease with acute exacerbation Dr Juarez can follow up with patient as outpatient if ambulation is not limited by her right knee pain. 4. Hypertension: with hypotension since admit, Holding Diovan and Norvasc for now Prophylaxis: DVT ppx with Lovenox and GI ppx with Protonix. Disposition: Home when she is stable. Subjective 24 Hr Interval Summary Free Text/Dictation Still coughing, but improved. Exam/Review of Systems Vital Signs Vitals Vital Signs Date Time Temp Pulse Resp B/P Pulse Ox O2 Delivery O2 Flow Rate FiO2 07/02/16 13:50 80 20 95 Nasal Cannula 3.0 07/02/16 08:04 98.3 113/54 Intake and Output 07/01/16 07/01/16 07/02/16 15:00 23:00 07:00 Intake Total 800 ml 1480 ml Output Total 550 ml Balance 250 ml 1480 ml Exam Constitutional: alert, oriented Psych: no complaints Head: normocephalic Eyes: nl conjunctiva ENMT: nl external ears & nose Neck: supple Respiratory: diminished breath sounds, wheezing Cardiovascular: regular rate and rhythm Gastrointestinal: soft Genitourinary - Female: nl adnexae Results Result Diagram: 07/02/16 0420 07/02/16 0420 Results 24 hrs Laboratory Tests Test 07/02/16 04:20 Anion Gap 13 Basophils # 0.0 Basophils % 0.2 Blood Urea Nitrogen 33 H Calcium Level 9.4 Carbon Dioxide Level 28 Chloride Level 107 Cholesterol Level 141 Cholesterol/HDL Ratio 3.9 Creatinine 1.37 H Eosinophils # 0.0 Eosinophils % 0.0 Glucose Level 115 HDL Cholesterol 36 Hematocrit 34.2 L Hemoglobin 12.0 Hemoglobin A1c 5.8 LDL Cholesterol, Calculated 92 Lymphocytes # 0.7 L Lymphocytes % 5.4 L Mean Corpuscular Hemoglobin 32.5 Mean Corpuscular Hemoglobin Concent 35.2 Mean Corpuscular Volume 92.6 Mean Platelet Volume 7.7 Monocytes # 1.1 H Monocytes % 8.4 Neutrophils # 10.9 H Neutrophils % 86.0 H Nucleated Red Blood Cells # 0.0 Nucleated Red Blood Cells % 0.0 Platelet Count 333 Potassium Level 4.4 Red Blood Count 3.70 L Red Cell Distribution Width 13.3 Sodium Level 144 Triglycerides Level 65 White Blood Count 12.7 #H Medications Medications Current Medications Prednisone (Prednisone) 60 mg DAILY PO Last administered on 07/02/16 08:33; Admin Dose 60 MG; Start 06/30/16 at 09:00 Enoxaparin Sodium (Lovenox) 40 mg DAILY SC Last administered on 07/02/16 08:35 ; Admin Dose 40 MG; Start 06/30/16 at 09:00 Cholecalciferol (Vitamin D) 1,000 unit DAILY PO Last administered on 07/02/16 08:33; Admin Dose 1,000 UNIT; Start 06/30/16 at 09:00 Acetaminophen (Tylenol Tab) 650 mg Q4H PRN PO PAIN AND OR ELEVATED TEMP Last administered on 07/01/16 13:09; Admin Dose 650 MG; Start 06/29/16 at 23:00 Ondansetron HCl (Zofran Inj) 4 mg Q4H PRN IV NAUSEA AND/OR VOMITING; Start at 23:00 Morphine Sulfate (morphine) 2 mg Q2H PRN IV PAIN; Start 06/29/16 at 23:00 Levofloxacin (Levaquin) 750 mg Q48H PO Last administered on 07/02/16 15:59; Admin Dose 750 MG; Start 06/30/16 at 15:30; Stop 07/05/16 at 15:29 Salmeterol Xinafoate/ Fluticasone (Advair 250/50 Diskus) 1 inh BID INH Last administered on 07/02/16 08:33; Admin Dose 1 INH; Start 06/30/16 at 21:00 Pantoprazole 40 mg 40 mg DAILY@06 PO Last administered on 07/02/16 05:22; Admin Dose 40 MG; Start 07/01/16 at 06:00 Sodium Chloride (NS) 1,000 ml @ 60 mls/hr [id number] IV Last administered on 07/02 06:50; Admin Dose 60 MLS/HR; Start 07/01/16 at 14:00 DREAD WATKINS MD Jul 02, 2016 16:43
[2016-07-02 19:53] VITALS: BP 125/59; RESP 18
[2016-07-02] MEDS: ACETAMINOPHEN 325 MG TAB PO PRN (20:26)
[2016-07-03] MEDS: ALBUTEROL/IPRATROPIUM (NEB) 3 ML AMP HHN SCH ×3 (01:57→14:32)
[2016-07-03] MEDS: ACETYLCYSTEINE 20% 4 ML VIAL NEB SCH ×3 (01:57→14:32)
[2016-07-03] MEDS: PANTOPRAZOLE (EC) 40 MG TAB PO SCH (05:09)
[2016-07-03 06:18] LABS: POTASSIUM 4.3 mmol/L (3.5-5.1)
[2016-07-03 06:20] LABS: CREATININE 1.1 mg/dl (0.44-1.00)
[2016-07-03 06:21] LABS: CALCIUM 9.1 mg/dl (8.4-10.2)
[2016-07-03 06:28] LABS: BASOPHILS % 0.2 % (0.0-2.0); HEMATOCRIT 34.6 % (37.0-47.0); LYMPHOCYTES % 8.7 % (15.0-51.0); MEAN CORPUSCULAR HEMOGLOBIN 32.3 pg (29.0-33.0); MEAN CORPUSCULAR HGB CONC 34.7 g/dl (32.0-37.0); MEAN CORPUSCULAR VOLUME 93.1 fl (82.0-101.0); MEAN PLATELET VOLUME 7.4 fl (7.4-10.4); MONOCYTES % 8.2 % (0.0-11.0); NEUTROPHIL # 9.8 10^3/ul (1.6-7.5); NEUTROPHILS % 82.9 % (39.0-77.0); PLATELET COUNT 377 10^3/UL (140-440); RED BLOOD COUNT 3.72 10^6/ul (4.20-5.40); RED CELL DISTRIBUTION WIDTH 12.9 % (11.5-14.5); UNCORRECTED WBC 11.9 10^3/ul (4.8-10.8); WHITE BLOOD COUNT 11.9 10^3/ul (4.8-10.8)
[2016-07-03 06:41] LABS: CONDITION 1
[2016-07-03 08:02] VITALS: BP 137/64; RESP 20
[2016-07-03] MEDS: ENOXAPARIN 40 MG/0.4 ML SYG SC SCH (08:44)
[2016-07-03] MEDS: SALMETEROL/FLUTICASONE 250/50 INHA INH SCH (08:44)
[2016-07-03] MEDS: predniSONE 20 MG TAB PO SCH (08:44)
[2016-07-03] MEDS: CHOLECALCIFEROL 1,000 UNIT TAB PO SCH (08:44)
--- NOTE | 2016-07-03 09:23 | PN ---
Date/Time of Note Date/Time of Note DATE: 07/03/16 TIME: 09:14 Assessment/Plan VTE Prophylaxis VTE Prophylaxis Intervention: LMWH Lines/Catheters IV Catheter Type (from Nrsg): Peripheral IV Urinary Cath still in place: No Assessment/Plan Assessment/Plan 81 yo female with: 1. COPD/ILD: with likely acute bronchospasms 2ry to Bronchitis, improving On 3L NC with sats 98% at rest this AM, check RA ABG and if qualifies for O2 with d/c with O2 Continue steroid taper Continue Levaquin and inhalers and will also need Nebs at home 2. Congestive heart failure may some diastolic dysfunction, EF 65%: minimal effusion on CT. No need for diuretics for now. 3. Right knee pain, limited range of motion, and small to moderate effusion on exam: improving, probably with steroids. 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 I have discussed it with Dr Juarez, for now patient already on Prednisone for chronic lung disease with acute exacerbation Dr Juarez will follow up with patient as outpatient in 1 to 2 weeks. 4. Hypertension: with hypotension since admit, Holding Diovan and Norvasc for now Prophylaxis: DVT ppx with Lovenox and GI ppx with Protonix. Disposition: Home when she is stable. Subjective 24 Hr Interval Summary Free Text/Dictation Patient doing better this AM with O2 sats up to 98% on 3L NC Afebrile and WBC down Renal function better and BP back up to baseline hypertensive Increase ROM right knee and less pain D/c plan today with Neb Machine and home O2 if needed Exam/Review of Systems Vital Signs Vitals Vital Signs Date Time Temp Pulse Resp B/P Pulse Ox O2 Delivery O2 Flow Rate FiO2 07/03/16 08:02 98.3 66 20 137/64 98 07/03/16 07:34 Nasal Cannula 3.0 Intake and Output 07/02/16 07/02/16 07/03/16 15:00 23:00 07:00 Intake Total 1640 ml 1440 ml Output Total 1200 ml 1600 ml Balance 440 ml -160 ml Exam Constitutional: alert, oriented, well developed Respiratory: clear to auscultation, normal air movement, other (No wheezing ) Cardiovascular: nl pulses, regular rate and rhythm Gastrointestinal: non-tender, soft Musculoskeletal: joint tenderness (improved right knee pain and ROM, much decreased effusion ), nl extremities to inspection, nl gait and stance Extremities: normal pulses Neurological: POULTRY HANGER II-XII intact, nl mental status, nl speech Results Result Diagram: 07/03/16 0510 07/03/16 0510 Results 24 hrs Laboratory Tests Test 07/03/16 05:10 Anion Gap 14 Basophils # 0.0 Basophils % 0.2 Blood Morphology Comment Blood Urea Nitrogen 26 H Calcium Level 9.1 Carbon Dioxide Level 26 Chloride Level 107 Creatinine 1.10 H Eosinophils # 0.0 Eosinophils % 0.0 Glucose Level 98 Hematocrit 34.6 L Hemoglobin 12.0 Lymphocytes # 1.0 Lymphocytes % 8.7 L Mean Corpuscular Hemoglobin 32.3 Mean Corpuscular Hemoglobin Concent 34.7 Mean Corpuscular Volume 93.1 Mean Platelet Volume 7.4 Monocytes # 1.0 H Monocytes % 8.2 Neutrophils # 9.8 H Neutrophils % 82.9 H Nucleated Red Blood Cells # 0.0 Nucleated Red Blood Cells % 0.0 Platelet Count 377 Potassium Level 4.3 Red Blood Count 3.72 L Red Cell Distribution Width 12.9 Sodium Level 143 White Blood Count 11.9 H Medications Medications Current Medications Prednisone (Prednisone) 60 mg DAILY PO Last administered on 07/03/16 08:44; Admin Dose 60 MG; Start 06/30/16 at 09:00 Enoxaparin Sodium (Lovenox) 40 mg DAILY SC Last administered on 07/03/16 08:44 ; Admin Dose 40 MG; Start 06/30/16 at 09:00 Cholecalciferol (Vitamin D) 1,000 unit DAILY PO Last administered on 07/03/16 08:44; Admin Dose 1,000 UNIT; Start 06/30/16 at 09:00 Acetaminophen (Tylenol Tab) 650 mg Q4H PRN PO PAIN AND OR ELEVATED TEMP Last administered on 07/02/16 20:26; Admin Dose 650 MG; Start 06/29/16 at 23:00 Ondansetron HCl (Zofran Inj) 4 mg Q4H PRN IV NAUSEA AND/OR VOMITING; Start at 23:00 Morphine Sulfate (morphine) 2 mg Q2H PRN IV PAIN; Start 06/29/16 at 23:00 Levofloxacin (Levaquin) 750 mg Q48H PO Last administered on 07/02/16 15:59; Admin Dose 750 MG; Start 06/30/16 at 15:30; Stop 07/05/16 at 15:29 Salmeterol Xinafoate/ Fluticasone (Advair 250/50 Diskus) 1 inh BID INH Last administered on 07/03/16 08:44; Admin Dose 1 INH; Start 06/30/16 at 21:00 Pantoprazole 40 mg 40 mg DAILY@06 PO Last administered on 07/03/16 05:09; Admin Dose 40 MG; Start 07/01/16 at 06:00 Sodium Chloride (NS) 1,000 ml @ 60 mls/hr [id number] IV Last administered on 07/02 23:19; Admin Dose 60 MLS/HR; Start 07/01/16 at 14:00 Procedures Procedures PROCEDURE: CT Chest without contrast (high resolution). CLINICAL INDICATION: Productive cough. Evaluate for pulmonary fibrosis. TECHNIQUE: High-resolution CT scan of the chest was performed without the administration of intravenous contrast. Coronal and sagittal reformatted images were obtained from the axial source images. Patient was examined during both deep inspiration and full expiration. Images were reviewed on a high resolution PACS workstation. CTDIvol (mGy): 37.89; Total Exam DLP (mGy-cm): 326.81. COMPARISON: Chest x-ray 06/29/2016. FINDINGS: Limited imaging of the lower neck is unremarkable. The heart is enlarged. There is no pericardial effusion. There is no mediastinal, hilar or axillary lymphadenopathy. The thoracic aorta is normal in caliber with atherosclerotic calcification. Incidental note is made of an aberrant right subclavian artery. The main pulmonary artery is prominent in size. Mild coronary artery calcification is present. Mild emphysematous changes are seen within the upper lungs. Extensive bilateral subpleural interstitial thickening is present with scattered few clusters of subpleural cystic change / honeycombing. There is an increased AP diameter of the chest suggesting hyperinflation. Trace left pleural fluid is present. Mild ground-glass opacification of the background pulmonary parenchyma is observed however this is accentuated by motion artifact. Limited imaging of the upper abdomen demonstrates multiple small simple cyst of the left kidney. Degenerative changes of the thoracic spine are present. Chest wall soft tissues are unremarkable. IMPRESSION: Mild hyperinflation with mild emphysematous changes of the lung apices. In addition, there is extensive diffuse subpleural interstitial thickening with scattered few clusters of subpleural cystic change / honeycombing indicating the presence of interstitial fibrosis. No evidence of mass or lymphadenopathy of the chest. Cardiomegaly and atherosclerosis with trace left pleural effusion. BRYAN PATEL Jul 03, 2016 09:23
--- NOTE | 2016-07-03 09:27 | PDOCDIS ---
Discharge Instructions CONDITION Patient Condition: Stable HOME CARE INSTRUCTIONS: Special Diet: regular ACTIVITY: Activity Restrictions: Slowly Increase Activity FOLLOW UP/APPOINTMENTS Appointments Home Health PT and RN Follow up with PCP within 1 to 2 weeks Follow up with Orthopedic surgery, Dr Juarez within 1 to 2 weeks BRYAN PATEL Jul 03, 2016 09:27
[2016-07-03] MEDS ORDERED: PANT40TA4 PO (09:34)
[2016-07-03] MEDS ORDERED: PRED20 PO (09:34)
[2016-07-03] MEDS ORDERED: LEVO250T9 PO (09:34)
[2016-07-03] MEDS ORDERED: ADV25050 INH (09:34)
[2016-07-03] MEDS ORDERED: ALBU2.5V3 HHN (09:34)
[2016-07-03] MEDS ORDERED: IPRA3AMP HHN (09:34)
[2016-07-03 09:56] LABS: AADO2 Arterial 33.2 mmHg (7.0-24.0); Allen Test ACCEPTAB; Arterial Base Excess -0.5 mmol/L (-3.0-3); Arterial COHb 0.3 % (0.0-3.0); Arterial Fraction of Oxyhgb 93.5 % (93.0-99.0); Arterial HCO3 23.9 mmol/L (22.0-26.0); Arterial MetHb 0.2 % (0.0-1.5); Arterial Total Hemglobin 12.6 g/dl (12.0-18.0); MODE ROOM AIR
[2016-07-03] MEDS ORDERED: AMLODIPINE 5 MG TAB PO SCH (21:00)
--- NOTE | 2016-07-04 07:24 | DS ---
DATE OF ADMISSION: 07/01/2016 DATE OF DISCHARGE: 07/03/2016 PRIMARY CARE PHYSICIAN: Dr. Cook ADMITTING PHYSICIAN: Dr. Martinez DISCHARGING PHYSICIAN: Dr. Adams CHIEF COMPLAINT ON ADMISSION: Right knee pain and shortness of breath. BRIEF HISTORY OF PRESENT ILLNESS: This is an 81-year-old elderly, female, Slovenian speaking only, who presented to the emergency department with primarily right knee pain but upon presentatio n she was found to have severe shortness of breath. The patient was hypoxic in the low 80s requirin g supplemental oxygen. She was also noted to have right knee effusion. She was admitted to a medic al/surgical bed, started on treatment for possibly chronic lung disease with acute exacerbation. HOSPITAL COURSE: The patient was admitted to a medical/surgical bed. She was started on steroid th erapy along with nebulizer treatments, antibiotics. She was requiring 6 L nasal cannula and seems t o be bronchospastic. She had a CAT scan, high-resolution, of the chest which did confirm the findin gs of interstitial lung disease including pulmonary fibrosis. Over the past 3 days, her respiratory status had greatly improved. She is down to 2 to 3 L nasal cannula. She does desaturate with ambu lation or at rest down to 89 to 90%. Her ABG on room air is confirming saturations in the 90s. The patient will be discharged home today with home oxygen and outpatient followup with a primary care physician. She will also be maintained on Levaquin for likely bronchopneumonia given the fact that she was having green sputum upon presentation. Regarding her right knee, the effusion is almost com pletely gone. The pain is improved, probably secondary to systemic steroids she is getting. After discussion with Dr. Juarez, orthopedic surgery, since there is no suspicion for infection in the knee, he recommended for the patient to just follow up with him as an outpatient as she may need jeyson roid injections once she is off the steroid taper around the same time. I have updated the patient' s son at the bedside about the patient's discharge plan today on home oxygen nebulizer treatments, [facility], visiting nurse. DISPOSITION: Discharge home with home health. DISCHARGE CONDITION: Stable. DISCHARGE DIET: Regular diet. DISCHARGE ACTIVITY: Resume ambulation at home with physical therapy. FOLLOWUP: 1. The patient is to follow up with a primary care physician within 1 week. 2. Follow up with home health PT and home health RN. 3. Follow up with orthopedic surgery, Dr. Juarez, as an outpatient within 1 week. 4. The patient to be set up with discharge clinic through [facility] she may qualify as a high risk patient at this point. DISCHARGE DIAGNOSES: 1. Chronic obstructive pulmonary disease, interstitial lung disease, status post acute bronchitis, bronchopneumonia. 2. Bronchitis. 3. Congestive heart failure, diastolic dysfunction, ejection fraction of 65%, chronic. 4. Right knee pain with effusion secondary to osteoarthritis, resolving. 5. Hypertension. DISCHARGE MEDICATIONS: 1. DuoNebs every 8 hours around the clock. 2. Albuterol nebulizers q.4 hours p.r.n. shortness of breath. 3. Levaquin 250 mg p.o. daily for 7 days. 4. Protonix 40 mg p.o. daily. 5. Prednisone taper. 6. Advair 250/50 one puff inhaled b.i.d. 7. Albuterol ProAir rescue inhaler 2 puffs inhaled q.4 hours as needed. 8. Norvasc 5 mg p.o. at bedtime. 9. Valsartan 80 mg p.o. daily. 10. Vitamin D3 supplement 1000 units daily. Dictated By: BRYAN CLARKE/WADE Conf#: [id number] DID#: [id number]
== END 2016-07-03 20:10 | disposition home health service (06) | DRG 190 ==
LOC: E/R 12:54 → PP2 20:11 → INTOOBSV 20:11 → UNDOADMOB 20:11 → PP2 20:12 → OBSVTOIN 07-01 14:50 → PP2 07-01 14:50 → INTOOBSV 07-01 14:50
PROVIDERS: ADMIT Legal Medicine; ATTEND Legal Medicine
DX: J44.0 Chronic obstructive pulmonary disease with (acute) lower respiratory infection (principal); J18.0 Bronchopneumonia, unspecified organism; I11.0 Hypertensive heart disease with heart failure; I50.32 Chronic diastolic (congestive) heart failure; J20.9 Acute bronchitis, unspecified; J44.1 Chronic obstructive pulmonary disease with (acute) exacerbation; M17.11 Unilateral primary osteoarthritis, right knee; Z87.891 Personal history of nicotine dependence; R09.02 Hypoxemia; R51 Headache
CPT/HCPCS: 36415; 36600; 71010; 71250; 73590; 80048; 80061; 82803; 83036; 83605; 83735; 83880; 84100; 85025; 87040; 87400; 93306; 93971; 94640; 94664; 96374; 96375; 97116; 97530; G0378; J0456; J0696; J1650; J1940; J2270; J2405; J2930; J7030; J7512

== ENCOUNTER 2018-05-20 19:52 | Emergency (ER) | payer OTHER ==
[~2018-05-20] VITALS: Wt 58.3 kg
[~2018-05-20 19:52] MED LIST: ADV25050 INH; ALBU2.5V3 HHN; ALBU90AE INHALATION; AMLO5TAB4 PO; CHOL100062 PO; IPRA3AMP29 HHN; LEVO250T9 PO; PANT40TA4 PO; PRED20TA PO; VALS80TA2 PO
[2018-05-21] MEDS ORDERED: KETOROLAC 15 MG INJ IM STA (02:03)
[2018-05-21] MEDS ORDERED: NAPR-985 PO (03:36)
[2018-05-21] MEDS ORDERED: CYCL10TA7 PO (03:36)
[2018-05-21 04:02] VITALS: BP 126/60; PULSE 57; RESP 20
--- NOTE | 2018-06-16 23:13 | ERD ---
ER Documentation Chief Complaint Chief Complaint REFERRED BY CLINIC FOR NECK PAIN AND RIGHT EAR PAIN, NO TRAUMA HPI This 83-year female who is referred by clinic for right neck pain. She said she had some muscular skeletal neck pain on the right side. No trauma. No fevers no chills. No numbness or tingling. No focal neurologic complaints. Pain mild to moderate intensity. ROS All systems reviewed and are negative except as per history of present illness. Medications Home Meds Active Scripts Naproxen* (Naprosyn*) 500 Mg Tablet, 500 MG PO BID PRN for PAIN AND/OR INFLAMMATION, #30 TAB Prov:SALLY DE LA PAZ 05/21/18 Cyclobenzaprine Hcl* (Cyclobenzaprine Hcl*) 10 Mg Tablet, 10 MG PO TID, #15 TAB Prov:SALLY DE LA PAZ 05/21/18 Prednisone (Prednisone) 20 Mg Tab, 60 MG PO DAILY for 14 Days, TAB taper prescribed Prov:AMANDANéstorCARADARIUSZ Mayur 07/03/16 Pantoprazole* (Pantoprazole*) 40 Mg Tablet.dr, 40 MG PO DAILY@06 for 30 Days, 3 Refills Prov:BRYAN PATEL Mayur 07/03/16 Salmeterol Xinaf/Fluticasone* (Advair*) 250-50 Diskus Inhaler, 1 INH INH BID, #1 3 Refills Prov:BRYAN PATEL 07/03/16 Ipratropium-Albuterol (Ipratropium-Albuterol) 0.5-3 Mg/3 Ml Ampul.neb, 3 ML HHN Q8, #90 3 Refills Prov:BRYAN PATEL 07/03/16 Albuterol Sulfate* (Albuterol Sulfate* Neb) 0.083%-3 Ml Neb, 2.5 MG HHN Q4H RESP THERAPY PRN for sob/wheeze, #90 3 Refills Prov:BRYAN PATEL 07/03/16 Reported Medications Albuterol Sulfate (Proair Respiclick) 90 Mcg Aer.pow.ba, 2 PUFFS INHALATION Q4, BOTTLE 06/29/16 Cholecalciferol* (Vitamin D3*) 1,000 Unit Tablet, 1000 UNIT PO DAILY, TAB 06/29/16 Valsartan* (Diovan*) 80 Mg Tablet, 80 MG PO DAILY, TAB 06/29/16 Amlodipine Besylate* (Norvasc*) 5 Mg Tablet, 5 MG PO QHS, TAB 06/29/16 Allergies Allergies: Coded Allergies: No Known Allergy (Unverified , 05/21/18) PMhx/Soc History of Surgery: Yes (knee, shoulder, cataract) Anesthesia Reaction: No Hx Neurological Disorder: No Hx Respiratory Disorders: Yes (COPD) Hx Cardiac Disorders: Yes (hypertension, hyperlipidemia) Hx Psychiatric Problems: No Hx Miscellaneous Medical Probl: Yes (OA, HTN) Hx Alcohol Use: Yes (Former occasional drinker) Hx Substance Use: No Hx Tobacco Use: Yes Smoking Status: Former smoker Physical Exam Physical Exam Const: No acute distress Head: Atraumatic Eyes: Normal Conjunctiva ENT: Normal External Ears, Nose and Mouth. Neck: Full range of motion. No meningismus. Resp: Clear to auscultation bilaterally Cardio: Regular rate and rhythm, no murmurs Abd: Soft, non tender, non distended. 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 At this point is clinically stable for outpatient management. Pain resolved. Follow-up with PCP. Return for worsening symptoms. Departure Diagnosis: Primary Impression: Neck pain Condition: Stable Patient Instructions: Radiculopathy, Cervical SALLY DE LA PAZ Jun 16, 2018 23:13
== END 2018-05-21 04:03 | disposition home or self-care (01) ==
LOC: E/R 19:52
DX: M54.2 Cervicalgia (principal); I10 Essential (primary) hypertension; J44.9 Chronic obstructive pulmonary disease, unspecified; Z79.891 Long term (current) use of opiate analgesic
CPT/HCPCS: 72050; J1885; 96372

== ENCOUNTER 2019-03-31 14:02 | Emergency (ER) | payer OTHER ==
[~2019-03-31] VITALS: Ht 149.9 cm; Wt 54.5 kg
[~2019-03-31 14:02] MED LIST changes: +ATOR10TA65 PO; +CYCL10TA7 PO; +DOCU-144 PO; +FAMO20TA18 PO; +FLUT1BLS9 IH; +HYDR-4011 PO; -LEVO250T9 PO; +LOSA25TA12 PO; +NAPR-985 PO; +TIOT18CA INHALATION
[2019-03-31 14:11] VITALS: Ht 149.9 cm; Wt 54.5 kg
[2019-03-31] MEDS ORDERED: SOD CHLORIDE 0.9% 500 ML IV STA (14:56)
[2019-03-31] MEDS ORDERED: ONDANSETRON 4 MG INJ IV STA (16:13)
[2019-03-31] MEDS ORDERED: morphine 2 MG INJ IV STA (16:13)
[2019-03-31] MEDS ORDERED: KETOROLAC 15 MG INJ IV STA (16:16)
[2019-03-31 21:47] VITALS: BP 97/62; PULSE 67; RESP 16
== END 2019-03-31 21:50 | disposition home or self-care (01) ==
LOC: E/R 14:02
DX: S99.912A Unspecified injury of left ankle, initial encounter (principal); J44.9 Chronic obstructive pulmonary disease, unspecified; I10 Essential (primary) hypertension; M79.662 Pain in left lower leg; W01.0XXA Fall on same level from slipping, tripping and stumbling without subsequent striking against object, initial encounter; Y92.9 Unspecified place or not applicable; Z87.891 Personal history of nicotine dependence
CPT/HCPCS: 36415; 73610; 73630; 80053; 82550; 82553; 83880; 84484; 85025; 85610; 85730; 93005; 93971; 96374; 96375; 99285; J1885; J2270; J2405; J7040